=== PATIENT | female | born 1980 | race Caucasian/White ===

== ENCOUNTER → 2019-03-02 | Outpatient (CLI) | payer MEDICAID, OTHER ==
[2019-03-02 15:19] LABS: BASO # 0.1 10^3/uL (0.0-0.2); BASO % 0.5 % (0.0-1.0); EOS # 0.4 10^3/uL (0.0-0.5); EOS % 3.3 % (0.0-3.0); HEMATOCRIT 41.1 % (36.0-47.0); HEMOGLOBIN 13.6 g/dl (12.0-15.5); LYMPH % 26.7 % (24.0-44.0); MEAN CORPUSCULAR HEMOGLOBIN 29.9 pg (27.0-33.0); MEAN CORPUSCULAR HGB CONC 33.1 g/dl (32.0-36.5); MEAN CORPUSCULAR VOLUME 90.3 fl (80.0-96.0); MONO # 0.6 10^3/uL (0.0-0.8); MONO % 5.8 % (0.0-5.0); NEUTROPHILS % 63.5 % (36.0-66.0); PLATELET COUNT, AUTOMATED 309 10^3/uL (150-450); RED BLOOD COUNT 4.55 10^6/uL (4.00-5.40)
[2019-03-02 15:43] LABS: HEMOGLOBIN A1c 6.6 %
[2019-03-02 16:14] LABS: HEPATITIS C VIRUS ABY INDEX 0.1 INDEX (<0.8); HIV 1&2 SCREEN CENTAUR NEGATIVE (NEGATIVE); RUBELLA IgG QUALITATIVE IMMUNE (IMMUNE)
[2019-03-02 17:05] LABS: CHLAMYDIA DNA AMPLIFICATION NEGATIVE (NEGATIVE); GC DNA AMPLIFICATION NEGATIVE (NEGATIVE)
== END ==
LOC: M SMT 11:50
PROVIDERS: ATTEND Advanced Practice Midwife
DX: Z34.80 Encounter for supervision of other normal pregnancy, unspecified trimester (principal); Z36.89 Encounter for other specified antenatal screening

== ENCOUNTER → 2019-03-14 | Outpatient (CLI) | payer OTHER, MEDICAID | LOC: M SMT 11:29 | PROVIDERS: ATTEND Advanced Practice Midwife | DX: O09.521 Supervision of elderly multigravida, first trimester (principal); Z3A.00 Weeks of gestation of pregnancy not specified ==

== ENCOUNTER → 2019-05-04 | Outpatient (CLI) | payer MEDICAID, OTHER ==
--- NOTE | 2019-05-04 11:30 | REP ---
Clinical: Anatomical evaluation. Comparison: None . Findings: Examination demonstrates a single live intrauterine in transverse (head to maternal right) presentation. motion is identified by technologist. Placenta is noted anterior and grade zero without evidence for placenta previa or abruption. Amniotic fluid volume is normal. Cervix measures 6.8 cm in length and appears closed. No evidence for nuchal cord. Gestational age by LMP 19 weeks 2 days with PANCHO 09/26/2019 . Gestational age by current measurements 18 weeks 5 days with PANCHO 09/30/2019 . FHR equals 141 beats per minute. BPD 4.0 cm 18 weeks 1 day HC 15.7 cm 18 weeks 4 days AC 13.4 cm 18 weeks 6 days FL 3.0 cm 19 weeks 1 day HL 2.7 cm 18 weeks 5 days HC/AC ratio 1.17 Estimated weight 264 grams ( 33rd percentile). Anatomical assessment demonstrates normal structures including cranium, choroid plexus, lungs, diaphragm, stomach, cord insertion/three-vessel cord, bladder, and extremities. Impression: 1. Single live intrauterine in transverse lie demonstrating appropriate interval growth. 2. Significant anatomical limitations due to positioning warrant reevaluation and follow-up. No obvious acute abnormality identified. Electronically Signed by Westley Shepherd MD 05/04/2019 11:23 A
== END ==
LOC: M RAD 10:20
PROVIDERS: ATTEND Advanced Practice Midwife
DX: Z34.82 Encounter for supervision of other normal pregnancy, second trimester (principal)

== ENCOUNTER → 2019-07-11 | Outpatient (REF) | payer OTHER, MEDICAID | LOC: M PLALAB 10:17 | PROVIDERS: ATTEND Obstetrics & Gynecology | DX: O24.419 Gestational diabetes mellitus in pregnancy, unspecified control (principal); Z53.9 Procedure and treatment not carried out, unspecified reason ==

== ENCOUNTER → 2019-07-18 | Outpatient (REF) | payer OTHER, MEDICAID ==
[2019-07-18 12:11] LABS: HEMATOCRIT 37.7 % (36.0-47.0); HEMOGLOBIN 12.3 g/dl (12.0-15.5); MEAN CORPUSCULAR HEMOGLOBIN 29.6 pg (27.0-33.0); MEAN CORPUSCULAR HGB CONC 32.6 g/dl (32.0-36.5); MEAN CORPUSCULAR VOLUME 90.6 fl (80.0-96.0); PLATELET COUNT, AUTOMATED 238 10^3/uL (150-450); RED BLOOD COUNT 4.16 10^6/uL (4.00-5.40); WHITE BLOOD COUNT 12.2 10^3/uL (4.0-10.0)
== END ==
LOC: M PLALAB 09:26
PROVIDERS: ATTEND Obstetrics & Gynecology
DX: O24.419 Gestational diabetes mellitus in pregnancy, unspecified control (principal)

== ENCOUNTER → 2019-08-03 | Outpatient (CLI) | payer OTHER, MEDICAID ==
--- NOTE | 2019-08-03 13:51 | REP ---
OB ULTRASOUND: Real-time sonographic evaluation of the gravid uterus is performed. There is a single living intrauterine gestation. The estimated gestational age is 32 weeks 2 days, EDC 09/26/2019. Today's measurements indicate appropriate growth. BPD 79 mm = 31 weeks 4 days, 40th percentile HC 309 mm = 34 weeks 4 days, 83rd percentile AC 277 mm = 31 weeks 5 days, 41st percentile Femur length 63 mm = 32 weeks 5 days, 57th percentile HC/AC ratio 1.12 within normal range 0.95-1.14. Estimated weight 1988 grams, 47th percentile. Cervix is closed and measures 4.1 cm in length. heart rate 146 beats per minute. Amniotic fluid within normal limits, JUDY 16.1 within normal range of 8.5-24.3. Biophysical profile score 8/8. S/D ratio 2.72 within normal range of 2.35-3.35. RI 0.63 within normal range of 0.59-0.75. Visualized anatomy today includes stomach, cord insertion, three vessel cord, kidneys and bladder which are all grossly unremarkable. position breech. Placenta anterior and grade 3 with no previa or abruption.
== END ==
LOC: M WHC 09:58
PROVIDERS: ATTEND Advanced Practice Midwife
DX: O24.415 Gestational diabetes mellitus in pregnancy, controlled by oral hypoglycemic drugs (principal); Z3A.31 31 weeks gestation of pregnancy

== ENCOUNTER → 2019-08-10 | Outpatient (CLI) | payer OTHER, MEDICAID ==
--- NOTE | 2019-08-10 11:17 | REP ---
OB ULTRASOUND AND BIOPHYSICAL PROFILE: Real-time sonographic evaluation of gravid uterus is performed. There is a single living intrauterine gestation, estimated gestational age is reportedly 38 weeks 2 days, EDC 09/26/2019. Cervix is closed and measures 4.4 cm in length. heart rate 158 beats per minute. Amniotic fluid within normal limits, JUDY 16.7 within normal range of 8.7-24.6. Biophysical profile score of 8/8. S/D ratio 2.49 within the normal range of 2.0 to 3.0. RI 0.60 is within normal range 0.59-0.75. position is breech. Placenta is anterior and grade 2 with no previa or abruption.
== END ==
LOC: M WHC 10:01
PROVIDERS: ATTEND Advanced Practice Midwife
DX: O24.419 Gestational diabetes mellitus in pregnancy, unspecified control (principal); Z3A.33 33 weeks gestation of pregnancy

== ENCOUNTER → 2019-08-10 | Outpatient (CLI) | payer OTHER, MEDICAID | LOC: M WHC 11:04 | PROVIDERS: ATTEND Obstetrics & Gynecology | DX: O24.419 Gestational diabetes mellitus in pregnancy, unspecified control (principal); Z3A.33 33 weeks gestation of pregnancy; Z53.8 Procedure and treatment not carried out for other reasons ==

== ENCOUNTER → 2019-08-16 | Outpatient (CLI) | payer OTHER, MEDICAID ==
--- NOTE | 2019-08-16 17:32 | REP ---
Limited obstetric sonography: History: Supervision of . Third trimester study for biophysical profile. Gestational diabetes. Findings: Limited obstetric sonography demonstrates a living single intrauterine gestation in a cephalic lie. Placenta is anterior grade III without evidence of previa or abruption. Closed cervical length is measured transabdominally at 3.7 cm. heart rate is recorded at 140 beats per minute. Amniotic fluid is subjectively normal. JUDY is normal at 12.1 cm. Biophysical profile score is 8 out of a possible 8. S/D ratio in the umbilical cord artery by Doppler is normal 2.24.
== END ==
LOC: M WHC 13:16
PROVIDERS: ATTEND Obstetrics & Gynecology
DX: O24.419 Gestational diabetes mellitus in pregnancy, unspecified control (principal); Z3A.00 Weeks of gestation of pregnancy not specified

== ENCOUNTER → 2019-08-24 | Outpatient (REF) | payer OTHER | LOC: M SFHCWAGY 16:49 | PROVIDERS: ATTEND Obstetrics & Gynecology | DX: Z36.89 Encounter for other specified antenatal screening (principal); Z3A.00 Weeks of gestation of pregnancy not specified ==

== ENCOUNTER → 2019-08-24 | Outpatient (CLI) | payer OTHER ==
--- NOTE | 2019-08-25 08:03 | REP ---
HISTORY: Gestational diabetes. Followup. Obtain biophysical profile and growth parameters. Multiple ultrasonographic images of the gravid uterus show a single living intrauterine gestation in the breech presentation. Doppler interrogation of the heart shows a heart rate of 150 beats per minute. The placenta is anterior and not low lying. The subjective amniotic fluid volume is within normal limits. The calculated amniotic fluid index is 14.9 with an expected range 7.8 to 24.9. The cervix measures 3.9 cm in length and is closed. Doppler interrogation of the umbilical artery at the insertion, has an AB ratio of 2.64. This is within the normal range. At the placental insertion the AB ratio is 2.22. This is within the normal range. Mid cord level, the AB ratio is 2.33. This is within the normal range. biophysical profile score: Breathing 2 Movement 2 Tone 2 AFV 2 Total 8/8 BPD 9.4 cm = 38 weeks 1 day HC 33.4 cm = 38 weeks 1 day AC 30.6 cm = 34 weeks 4 days FL 7.0 cm = 35 weeks 6 days The estimated weight is 2721 grams which is at the 54th percentile for a 35 week 2 day gestational age. IMPRESSION: Single living intrauterine gestation as described above with an estimated gestational age of 36 weeks 2 days via composite criteria and an estimated date of delivery of 09/19/2019 by today's exam.
== END ==
LOC: M WHC 12:21
PROVIDERS: ATTEND Advanced Practice Midwife
DX: O24.419 Gestational diabetes mellitus in pregnancy, unspecified control (principal); Z3A.36 36 weeks gestation of pregnancy

== ENCOUNTER → 2019-08-31 | Outpatient (CLI) | payer OTHER, MEDICAID ==
--- NOTE | 2019-08-31 16:27 | REP ---
REASON: Obtain biophysical profile due to gestational diabetes. Multiple ultrasonographic images of the gravid uterus shows a single living intrauterine gestation in the cephalic presentation. Doppler interrogation of the heart shows a heart rate of 146 beats per minute. The cervix measures 4.0 cm in length and is closed. The placenta is anterior and not low lying. The subjective amniotic fluid volume is within normal limits. The calculated amniotic fluid index is 12.8, which is within the expected range of 7.6 to 24.8. biophysical profile score is 2 for breathing, 2 for movement, 2 for tone, and 2 for amniotic fluid volume, giving a sum total of 8 out of 8. Doppler interrogation of the umbilical artery was obtained at three separate points. The insertion showed an A/B ratio of 2.26, which is within the normal range. The placental insertion shows an A/B ratio of 2.26, which is within the normal range. The mid cord A/B ratio is 2.12. This is also within normal range. IMPRESSION: Limited OB ultrasound with biophysical profile, as described above.
== END ==
LOC: M WHC 09:29
PROVIDERS: ATTEND Obstetrics & Gynecology
DX: O24.419 Gestational diabetes mellitus in pregnancy, unspecified control (principal)

== ENCOUNTER → 2019-09-07 | Outpatient (CLI) | payer OTHER, MEDICAID ==
[~2019-09-07] MED LIST: ACET325C5 PO; CETI10CA2 PO; INSUNSD SC; INSURSD SC; PREN29TA4 PO
--- NOTE | 2019-09-07 14:20 | REP ---
OB ULTRASOUND, BIOPHYSICAL PROFILE: Real-time ultrasound evaluation of gravid uterus performed. There is a single living intrauterine gestation. The estimated gestational age is 37 weeks 2 days, EDC 09/26/2019. Cervix is closed and measures 3.5 cm in length. heart rate is 161 beats per minute. Amniotic fluid is within normal limits, JUDY 10.5, normal range 7.4-24.3. Biophysical profile /8. S/D ratio 2.46, within normal range 1.6-2.6. RI 0.59 within normal range 0.59-0.75. position vertex. Placenta anterior and grade 3 with no previa or abruption.
== END ==
LOC: M WHC 10:59
PROVIDERS: ATTEND Obstetrics & Gynecology
DX: O24.419 Gestational diabetes mellitus in pregnancy, unspecified control (principal); Z3A.37 37 weeks gestation of pregnancy

== ENCOUNTER → 2019-09-14 | Outpatient (CLI) | payer OTHER, MEDICAID ==
[~2019-09-14] MED LIST changes: +IBUP80TA PO; +METF500T13 PO; +PERCOCET PO
--- NOTE | 2019-09-14 15:22 | REP ---
OB ULTRASOUND: ? Real-time sonographic evaluation of the gravid uterus is performed. There is a single intrauterine gestation. The estimated gestational age is 38 weeks 2 days, EDC 09/08/19. Today's measurements indicate appropriate growth. Biometry and Growth: BPD 90 mm = 36 weeks 3 days, 25th percentile HC 345 mm = 39 weeks 6 days, 77th percentile AC 351 mm = 39 weeks 0 days, 61st percentile FL 74 mm = 37 weeks 6 days, 44th percentile HC/AC ratio 0.98 within the normal range 0.90 to 1.09 Estimated weight 3524 grams 63rd percentile. SEEN/GROSSLY UNREMARKABLE Lateral ventricles Yes Posterior fossa Yes Upper lip Yes Four-chamber heart Yes LVOT Yes RVOT Yes Stomach Yes Cord insertion Yes Three vessel cord Yes Kidneys Yes Bladder Yes Spine Yes Cervical length: Closed and measures 4.1 cm in length. heart rate: 139 beats per minute. position: Vertex. Placenta: Anterior and grade 3 with no previa or abruption. Amniotic fluid: Appears lower limits of normal, JUDY 7.9, normal range 7.3 to 22.5. Biophysical profile score: 8/8. S/D ratio: 2.08, within normal range 1.6 to 2.6. RI: 0.52.
== END ==
LOC: M WHC 11:06
PROVIDERS: ATTEND Obstetrics & Gynecology
DX: O24.415 Gestational diabetes mellitus in pregnancy, controlled by oral hypoglycemic drugs (principal); O24.419 Gestational diabetes mellitus in pregnancy, unspecified control; Z3A.38 38 weeks gestation of pregnancy

== ENCOUNTER → 2019-09-18 | Outpatient (CLI) | payer OTHER, MEDICAID | LOC: M LABSMTC 11:33 | PROVIDERS: ATTEND Anesthesiology | DX: Z01.818 Encounter for other preprocedural examination (principal); Z11.59 Encounter for screening for other viral diseases | CPT/HCPCS: C8903; U0003 ==